=== PATIENT | female | born 1970 | race Caucasian/White ===

== ENCOUNTER 2016-09-05 22:20 | Emergency (ER) | payer MEDICARE ==
[2016-09-05 20:43] LABS: WBC (NOT ORDERED) (RFLEX) 0 (0-5)
[2016-09-05 20:53] LABS: ASCORBIC ACID (UR NOT ORDER) NEG (NEG); BILIRUBIN, URINE NEGATIVE (NEG); ER URINALYSIS TAT 0 Hrs 11 Mins; KETONE, URINE NEGATIVE (NEG); LEUKOCYTE ESTERASE(NOT OR NEG (NEG); NITRITE (URINE) NEG (NEG)
[2016-09-05 21:10] LABS: BASOPHILS 0.8 %; BASOPHILS ABSOLUTE 0.08 10/3/uL (0.0-0.16); EOSINOPHILS 1.4 %; EOSINOPHILS ABSOLUTE 0.15 10/3/uL (0.0-0.53); HEMOGLOBIN 12.2 g/dL (12.0-16.0); IMMATURE GRANULOCYTES 0.2 %; IMMATURE GRANULOCYTES ABSOLUTE 0.02 10/3/uL (0.0-0.11); LYMPHOCYTES 35.2 %; LYMPHOCYTES ABSOLUTE 3.64 10/3/uL (0.67-4.30); MANUAL DIFF NO %; MEAN CORPUSCULAR HEMOGLOB 26.6 pg (26.0-34.0); MEAN CORPUSCULAR VOLUME 80.6 fL (80-100); MEAN PLATELET VOLUME 9.1 fL (9.2-13.0); MONOCYTES 8.2 %; MONOCYTES ABSOLUTE 0.85 10/3/uL (0.21-1.20); NEUTROPHILS 54.2 %; NEUTROPHILS ABSOLUTE 5.61 10/3/uL (2.02-8.40); PLATELET COUNT 371 10/3/uL (150-400); RBC DISTRIBUTION WIDTH 13.8 % (12.0-16.0); RED CELL COUNT 4.59 10/6/uL (4.0-5.6); WHITE BLOOD CELLS 10.4 10/3/uL (4.5-10.5)
[2016-09-05 21:26] LABS: ALBUMIN 3.6 G/DL (3.5-5.0); ALKALINE PHOSPHATASE 72 U/L (45-117); BUN (BLOOD UREA NITROGEN) 13 MG/DL (6-23); CALCIUM, SERUM 8.6 MG/DL (8.5-10.4); CHLORIDE, SERUM 102 MMOL/L (96-112); CO2 (CARBON DIOXIDE) 31 MMOL/L (24-34); CREATININE 0.82 MG/DL (0.55-1.02); GFR AFRICAN AMERICAN 100 ML/MIN (>=60); GFR NON AFRICAN AMERICAN 86 ML/MIN (>=60); GLOBULIN 3.6 G/DL (2.5-4.1); GLUCOSE, SERUM 94 MG/DL (60-99); POTASSIUM, SERUM 3.6 MMOL/L (3.5-5.3); SGOT(AST) 17 U/L (5-40); SGPT(ALT) 28 U/L (5-65); SODIUM, SERUM 141 MMOL/L (135-148); TOTAL BILIRUBIN 0.4 MG/DL (0-1.2); TOTAL PROTEIN 7.2 G/DL (6.0-8.5)
[~2016-09-05 22:20] MED LIST: ADDERALL20 MG PO; AMARYL1 MG PO; BYSTOLIC10 MG PO; CALTRA600D PO; HAIR SKIN NAILS PO; HYDROCHLOROT25 MG PO; LORTAB10 PO; METHOC500B PO; MIRALAX POWDER1 PKT PO; MIRALAXPKT PO; MULTIVIT/MIN PO; PAXIL40 MG PO; ROXICODONE15 MG PO; VITAMIN B-121000 MC1 SL; WELL75 PO; X5 PO; XANAX1 MG PO; ZANAFLEX 4 MG TA4 MG PO
[2016-10-20] MEDS ORDERED: ZANAFLEX2 MG PO (15:56)
[2016-10-20] MEDS ORDERED: LIDOCAINE 5% OINT TOP (16:00)
[2016-10-20] MEDS ORDERED: ALLEGRA180 PO (16:01)
[2016-10-20] MEDS ORDERED: SUDAFED PO (16:02)
[2016-12-29] MEDS ORDERED: CHANTIX1 PO (11:30)
[2016-12-29] MEDS ORDERED: PEPCID COMPLETE PO (11:31)
[2017-01-06] MEDS ORDERED: V5 PO (15:33)
[2017-01-06] MEDS ORDERED: ROXICODONE15 MG PO (15:34)
[2017-01-06] MEDS ORDERED: MSCONTIN PO (15:34)
[2017-01-06] MEDS ORDERED: AT25 PO (15:34)
[2017-01-06] MEDS ORDERED: MOVANTIK25 MG PO (15:34)
== END 2016-09-05 22:47 | disposition home or self-care (01) ==
LOC: ER 22:20
PROVIDERS: Emergency Medicine
DX: K52.9 Noninfective gastroenteritis and colitis, unspecified (principal); I10 Essential (primary) hypertension; F32.9 Major depressive disorder, single episode, unspecified; F41.9 Anxiety disorder, unspecified; E11.9 Type 2 diabetes mellitus without complications; Z87.891 Personal history of nicotine dependence; Z88.1 Allergy status to other antibiotic agents; Z88.6 Allergy status to analgesic agent; Z88.2 Allergy status to sulfonamides; Z88.8 Allergy status to other drugs, medicaments and biological substances; Z91.018 Allergy to other foods; Z79.899 Other long term (current) drug therapy
CPT/HCPCS: 74176; 80053; 81001; 83605; 83690; 84703; 85025; 96374; 96375; 99285; J1980; J2405

== ENCOUNTER 2016-11-02 04:29 | Observation (INO) | payer OTHER ==
[2016-10-23 12:05] LABS: HEMATOCRIT 37.5 % (36.0-48.0); HEMOGLOBIN 12.1 g/dL (12.0-16.0)
[2016-10-23 12:19] LABS: BUN (BLOOD UREA NITROGEN) 11 MG/DL (6-23); CALCIUM, SERUM 8.3 MG/DL (8.5-10.4); CHLORIDE, SERUM 109 MMOL/L (96-112); CO2 (CARBON DIOXIDE) 27 MMOL/L (24-34); GFR AFRICAN AMERICAN 103 ML/MIN (>=60); GFR NON AFRICAN AMERICAN 89 ML/MIN (>=60); POTASSIUM, SERUM 3.8 MMOL/L (3.5-5.3); SODIUM, SERUM 145 MMOL/L (135-148)
[2016-10-23 12:20] LABS: GLUCOSE, SERUM 68 MG/DL (60-99)
--- NOTE | ~2016-11-02 | OP ---
Record Of Operation [facility] [address] [place]. [address] NAME: ELLEN JAEGER : 72 STATUS : DIS Nate PAT#: [id number] AGE: 46 ADM/REG DATE : 11/02/16 MR#: [id number] REPORT SERV DATE: 11/05/16 DICTATED BY: SKINNY CURTIS II DATE: 11/05/16 REPORT STATUS : Draft TRANSCRIBED BY: SAQIB DATE: 11/05/16 DATE OF PROCEDURE: 11/02/2016 PREOPERATIVE DIAGNOSES: 1. Left greater than right upper extremity radiculopathy. 2. C5/6 degenerative disk disease with spondylosis. POSTOPERATIVE DIAGNOSES: 1. Left greater than right upper extremity radiculopathy. 2. C5/6 degenerative disk disease with spondylosis. PROCEDURE: 1. C5/C6 total disk replacement. 2. Use of the microscope. FLUIDS: 1500 mL LR. ESTIMATED BLOOD LOSS: 15 mL. DRAINS: One drain. COMPLICATIONS: No complications. IMPLANTS: Medtronic. PREOPERATIVE HISTORY: This is a friendly 46-year-old female suffering with neck pain with significant radiation of pain into the left upper extremity. The pain radiates into the periscapular region and down the arm. We discussed the pros and cons of continuing nonoperative care versus surgery. We discussed the risks. These include but are not limited to infection, abscess, injury to the esophagus as well as a small chance of stroke and . DESCRIPTION OF PROCEDURE: After informed consent was obtained, the patient was brought to the operating room at her request and general anesthesia achieved. She was placed in the supine position, and the neck and iliac crest were prepped and draped in a sterile fashion. The right sided incision was made, and the subperiosteal exposure was completed following the completion of the retropharyngeal approach. The black ash burner operator retractors were placed underneath the longus colli muscles. The microscope was now brought into place, and under microscopic visualization, the diskectomy was now initiated with the knife followed by completion of the diskectomy with the pituitary rongeurs, Kerrison rongeurs, and the curettes. The high-speed bur was now used to create parallel endplates at C5 and C6. Next, the Medtronic artificial disk replacement was trialed and the appropriate size chosen. The device was now assembled on the back table and then placed into the disk space under fluoroscopic assistance. Please note, the trialing was also done with the use of fluoroscopy. Record Of Operation [facility] [place]. [address] NAME: ELLEN JAEGER : 72 STATUS : DIS Nate PAT#: [id number] AGE: 46 ADM/REG DATE : 11/02/16 MR#: [id number] REPORT SERV DATE: 11/05/16 DICTATED BY: SKINNY CURTIS II DATE: 11/05/16 REPORT STATUS : Draft TRANSCRIBED BY: MODL DATE: 11/05/16 At this point, the standard imaging confirmed acceptable placement of the implants followed by confirmation of hemostasis. We did place a drain secondary to very mild cancellous bone bleeding. Standard closure was performed followed by dressing application and extubation and transferred to PACU in a stable condition. VICENTE/SAQIB Skinny Curtis II, M.D. / [id number] CC: Jayashree Ashford M.D.
[~2016-11-02 04:29] MED LIST changes: +ALLEGRA180 PO; +LIDOCAINE 5% OINT TOP; +SUDAFED PO; +ZANAFLEX2 MG PO
[2016-11-03] MEDS ORDERED: V5 PO (11:16)
[2016-11-03] MEDS ORDERED: MSCONT15 PO (11:16)
[2016-12-29] MEDS ORDERED: CHANTIX1 PO (11:30)
[2016-12-29] MEDS ORDERED: PEPCID COMPLETE PO (11:31)
[2017-01-06] MEDS ORDERED: V5 PO (15:33)
[2017-01-06] MEDS ORDERED: ROXICODONE15 MG PO (15:34)
[2017-01-06] MEDS ORDERED: AT25 PO (15:34)
[2017-01-06] MEDS ORDERED: MOVANTIK25 MG PO (15:34)
[2017-01-06] MEDS ORDERED: MSCONTIN PO (15:34)
== END 2016-11-03 12:03 | disposition home or self-care (01) ==
LOC: SDC 04:29 → SDC/OF 08:27 → 3SO 09:30
PROVIDERS: Orthopaedic Surgery
PROC: 0RB30ZZ Excision of Cervical Vertebral Disc, Open Approach (ICD-10-PCS; principal; 2016-11-02 05:30)
PROC: 01N10ZZ Release Cervical Nerve, Open Approach (ICD-10-PCS; 2016-11-02 05:30)
DX: M50.122 Cervical disc disorder at C5-C6 level with radiculopathy (principal); M47.22 Other spondylosis with radiculopathy, cervical region; E89.2 Postprocedural hypoparathyroidism; E11.9 Type 2 diabetes mellitus without complications; J40 Bronchitis, not specified as acute or chronic; G47.33 Obstructive sleep apnea (adult) (pediatric); G43.909 Migraine, unspecified, not intractable, without status migrainosus; M19.90 Unspecified osteoarthritis, unspecified site; H10.9 Unspecified conjunctivitis; H26.9 Unspecified cataract; F41.9 Anxiety disorder, unspecified; F32.9 Major depressive disorder, single episode, unspecified; F90.9 Attention-deficit hyperactivity disorder, unspecified type; F17.210 Nicotine dependence, cigarettes, uncomplicated; Z87.81 Personal history of (healed) traumatic fracture; Z98.890 Other specified postprocedural states; Z98.84 Bariatric surgery status; Z90.89 Acquired absence of other organs; Z98.51 Tubal ligation status; Z82.49 Family history of ischemic heart disease and other diseases of the circulatory system; Z80.9 Family history of malignant neoplasm, unspecified; Z81.8 Family history of other mental and behavioral disorders; Z82.3 Family history of stroke; Z99.89 Dependence on other enabling machines and devices; Z88.0 Allergy status to penicillin; Z88.1 Allergy status to other antibiotic agents; Z88.2 Allergy status to sulfonamides; Z88.6 Allergy status to analgesic agent; Z88.8 Allergy status to other drugs, medicaments and biological substances; Z91.018 Allergy to other foods; Z79.899 Other long term (current) drug therapy; Z86.010 Personal history of colon polyps
CPT/HCPCS: 80048; 82962; 84703; 85014; 85018; 87641; 88304; 88311; 93005; 96374; 96375; 96376; A9270-GY; G0378; J0690; J1170; J2250; J2270; J2405; J2710; J3010; J3301